=== PATIENT | male | born 1955 | race Two or more races ===

== ENCOUNTER 2017-09-08 05:35 | Emergency (ER) | payer MEDICAID, OTHER ==
[~2017-09-08] VITALS: Ht 190.5 cm; Wt 122.5 kg
[2017-09-08] MEDS ORDERED: EPINEPHRINE (1:10,000) SYRINGE 1 MG/10 ML DISP.SYRIN IVP ONE (05:38)
[2017-09-08] MEDS ORDERED: FEE EMEERGENCY 1 MIN EA MC ONE (05:38)
[2017-09-08] MEDS ORDERED: EPINEPHRINE (1:1000) 1 MG/ML AMPUL SUBCUT ONE (05:38)
--- NOTE | 2017-09-08 05:45 | NUR ---
PT BIB RA WITH A C/O SYNCOPE WHILE WALKING TO GET A DRINK OF WATER. PT IS ON THE MONITOR AND CONTINUOUS PULSE OX. PT'S O2 SAT IS 87% ON RA. PT PLACED ON 2L O2 VIA NC. DR. CALDERON IS AWARE. PT IS PALE, AA&O X4, RESP EVEN AND UNLABORED. 18G IV IN LT HAND DATA QUALITY CONSULTANT.
--- NOTE | 2017-09-08 05:50 | NUR ---
LIQUOR DEPARTMENT MANAGER IS AT THE BEDSIDE FOR DRAW.
--- NOTE | 2017-09-08 05:53 | NUR ---
XRAY IS AT THE BEDSIDE.
[2017-09-08] MEDS ORDERED: IV NS 0.9% 1,000 ML BAG IV ONE ×5 (06:00→08:30)
[2017-09-08] MEDS ORDERED: ONDANSETRON HCL/PF 4 MG/2 ML VIAL IV ONE (06:00)
[2017-09-08] MEDS ORDERED: ASPIRIN 81 MG TAB.CHEW PO ONE (06:00)
[2017-09-08 06:02] LABS: BASOPHILS % (AUTO) 0.4 % (0.0-2.0); EOSINOPHILS # (AUTO) 0.3 /CMM (0.0-0.7); EOSINOPHILS % (AUTO) 3.2 % (0.0-6.0); HEMATOCRIT 45 % (39-51); HEMOGLOBIN 14.6 g/dL (13.5-17.5); LYMPHOCYTES # (AUTO) 2.7 /CMM (0.8-4.8); LYMPHOCYTES % (AUTO) 33.7 % (20.0-44.0); MEAN CORPUSCULAR HEMOGLOBIN 30 PG (26.0-33.0); MEAN CORPUSCULAR HGB CONC 33 g/dl (31.0-36.0); MEAN CORPUSCULAR VOLUME 91 fL (80-96); MONOCYTES # (AUTO) 0.5 /CMM (0.1-1.30); MONOCYTES % (AUTO) 6.1 % (2.0-12.0); NEUTROPHILS # (AUTO) 4.5 /CMM (1.8-8.9); NEUTROPHILS % (AUTO) 56.6 % (43.0-81.0); PLATELET COUNT (AUTO) 124 /CMM (150-450); RDW COEFFICIENT OF VARIATION 13.8 (11.5-15.0); RED BLOOD CELL COUNT(AUTO) 4.93 MIL/uL (4.5-6.0)
--- NOTE | 2017-09-08 06:20 | NUR ---
18G IV STARTED IN RAC.
[2017-09-08 06:22] LABS: CALCIUM, SERUM 8.4 mg/dL (8.5-10.1); CARBON DIOXIDE 22 mmol/L (21-32); CHLORIDE 104 mmol/L (98-107); CREATININE 1.5 mg/dL (0.6-1.3); GLUCOSE 167 mg/dL (74-106); POTASSIUM 3.3 mmol/L (3.5-5.1); SODIUM SERUM 138 mmol/L (136-145); UREA NITROGEN, BLOOD 21 mg/dL (7-18)
--- NOTE | 2017-09-08 06:23 | NUR ---
TELE 306-2
[2017-09-08] MEDS ORDERED: ASPIRIN 81 MG TAB.CHEW ONE (06:27)
[2017-09-08] MEDS ORDERED: ONDANSETRON HCL/PF 4 MG/2 ML VIAL ONE (06:27)
[2017-09-08 06:32] LABS: TROPONIN I < 0.017 ng/mL (0.00-0.056)
[2017-09-08] MEDS ORDERED: IOHEXOL-350 100 ML VIAL IV ONE (06:33)
[2017-09-08] MEDS ORDERED: IV NS 0.9% 250 ML IV ONE (06:33)
[2017-09-08] MEDS ORDERED: CT SWABBABLE VALVE TRANS SET 1 EA INFUS.SET MC ONE (06:33)
--- NOTE | 2017-09-08 06:38 | NUR ---
PT LEFT FOR CT VIA RNEY
[2017-09-08 06:42] VITALS: BP 149/93
--- NOTE | 2017-09-08 06:48 | NUR ---
PT BACK FROM CT ON [facility]. DR. STEWART AT BEDSIDE.
[2017-09-08 06:54] LABS: INR 1.02 (0.87-1.13); PROTHROMBIN TIME 10.6 SECS (9.5-12.7)
[2017-09-08] MEDS ORDERED: HEPARIN INFUSION/D5W 500 ML IV ONE (07:05)
--- NOTE | 2017-09-08 07:05 | NUR ---
CALLING DR. ADAIR, CARDIOLOGY CONSULT.
--- NOTE | 2017-09-08 07:09 | NUR ---
DR. KAM NOTIFIED PT WAS NOT FEELING WELL. DR. KAM AT THE BEDSIDE.
--- NOTE | 2017-09-08 07:10 | NUR ---
CPR STARTED SEE CODE BLUE SHEET DR KAM AT BEDSIDE
--- NOTE | 2017-09-08 07:10 | NUR ---
REPORT GIVEN TO ROSS ESTES FOR [facility]
--- NOTE | 2017-09-08 07:11 | NUR ---
CALLING DR. HENSON, VASCULAR SURGEON.
--- NOTE | 2017-09-08 07:13 | NUR ---
Winston Lo MD bi application developer for Dr. Gonsalves . Informed Dr. Lo that Dr. Thapa is currently running a code blue and we will have to call Teresita back.
--- NOTE | 2017-09-08 07:16 | NUR ---
RECEIVED CALL FROM DR. KENNEY. INFORMED HIM THAT DR. STEWART WAS BUSY RUNNING CODE AND WE WILL CALL HIM BACK. DR. KENNEY SAID OKAY.
[2017-09-08] MEDS ORDERED: HEPARIN INFUSION/D5W 500 ML IV PRN (07:30)
--- NOTE | 2017-09-08 08:06 | NUR ---
TIME OF [address] KAM
--- NOTE | 2017-09-08 08:25 | NUR ---
CALLED [facility] [phone] PT IS ORGAN DONATION CANDIDATE. SPOKE TO MEÑO, CASE# [id number].
--- NOTE | 2017-09-08 08:28 | NUR ---
CALLED [facility] [phone] TO REPORT . NO ONE IS ANSWERING THE PHONE AND DR AGUILAR IS NOT CHIEF PSYCHOLOGIST PER VOICE MESSAGE.
--- NOTE | 2017-09-08 08:29 | NUR ---
UNABLE TO LEAVE VOICE MESSAGE, NO OPTION. SEND CALL BACK NUMBER PER INSTRUCTION.
[2017-09-08] MEDS ORDERED: ALTEPLASE 100 MG/VIAL VIAL IV ONE (08:30)
[2017-09-08] MEDS ORDERED: EPINEPHRINE (1:10,000) SYRINGE 1 MG/10 ML DISP.SYRIN IV ONE (08:30)
--- NOTE | 2017-09-08 08:36 | NUR ---
SPOKE TO TAWNYA AT [facility] THERAPIST'S DEPARTMENT [phone], NOT GROUP THERAPIST'S CASE.
--- NOTE | 2017-09-08 11:23 | NUR ---
RJ received a call from Сергей in ER requesting for SW to contact a [facility] rastafarian for a review engineer to come to the ED per family's request. RJ contacted the following churches: [facility] spoke to [facility], no review engineer is available, [facility] no medical tech available, [facility] spoke to Sarah who stated medical tech is currently at a and will not be able to come until possibly late in the afternoon, [facility] spoke to Roxana Harrell and no medical tech is available today, [facility] stated that [place] is not their catchment area and cannot have any medical tech come, [facility] , no response, [facility] no Rabbi is available today, [facility] no rabbi is available. RJ contacted [facility] and spoke with Julio Cesar who informed SW to email her the request for a review engineer at [email or web address]. RJ received a call shortly after sending the email from the review engineer stating he will be at [facility] ETA 45 minutes to an hour. RJ updated Сергей in ED regarding the review engineer arriving within 45 minutes to 1 hour.
--- NOTE | 2017-09-08 11:49 | NUR ---
laura, pt's son [phone]
--- NOTE | 2017-09-08 11:50 | NUR ---
spoke to louann [facility] . pt's family ok for body to be picked up.
--- NOTE | 2017-09-08 11:59 | NUR ---
[place] [facility] [place]
--- NOTE | 2017-09-08 17:14 | NUR ---
CALLED [facility] [phone] AGAIN. NO ONE IS ANSWERING THE PHONE AND DR AGUILAR IS NOT ARCHITECT NAVAL PER VOICE MESSAGE. UNABLE TO LEAVE VOICE MESSAGE. [facility] BACK NUMBER [facility].
== END 2017-09-08 12:01 | disposition expired ==
LOC: ER 05:37
DX: I46.9 Cardiac arrest, cause unspecified (principal); I26.99 Other pulmonary embolism without acute cor pulmonale; R79.89 Other specified abnormal findings of blood chemistry; R79.1 Abnormal coagulation profile; Z79.82 Long term (current) use of aspirin
CPT/HCPCS: 31500; 36415; 37195; 71010; 71275; 80048; 82962 ×2; 84484; 85025; 85730; 87081; 92950; 93005; 96360; 96361; 96374; 99291; 99292; A4606; J0171 ×2; J1644; J2405; J2997; J7030 ×2; J7050; Q9967; Z7610